=== PATIENT | female | born 1985 | race Caucasian/White ===

== ENCOUNTER 2018-05-15 17:02 | Emergency (ER) | payer OTHER ==
[~2018-05-15] VITALS: Ht 165.1 cm; Wt 68.0 kg
[2018-05-15] MEDS ORDERED: IMITREX50 MG ORAL (17:09)
[2018-05-15] MEDS ORDERED: KLONOPIN0.5 MG ORAL (17:09)
[2018-05-15] MEDS ORDERED: HYDROCHLOROTH12.5 M2 ORAL (17:09)
[2018-05-15] MEDS ORDERED: CONTRAVE (17:09)
[2018-05-15] MEDS ORDERED: Isovue-300 100ml vial INJ PRN (17:30)
--- NOTE | 2018-05-15 17:40 | Emergency Room Report ---
History of Present Illness General Chief Complaint: Abdominal Pain Source: Patient Present Illness HPI Patient is a 32-year-old female who returned last evening from overseas trip to [place]. Today she woke up with upper abdominal pain she describes as crampy nonradiating with no worsening or alleviating factors. She feels it similar to prior episodes of food poisoning but the pain is more intense. Patient denies any prior abdominal surgery but does state she had a recent cervical LEEP procedure. Pain is associated with vomiting and diarrhea with chills but no fever. Allergies: Coded Allergies: No Known Allergies (Unverified , 05/15/18) Patient History Past Medical History: none Past Surgical History: none Pertinent Family History: none Social History: Denies: smoking, alcohol use, drug use Last Menstrual Period: unk Review of Systems Constitutional: Reports: chills; Denies: no symptoms, see HPI, sweats, fever, malaise, weakness, other Eye: Denies: no symptoms, see HPI, eye pain, blurred vision, tearing, double vision, nose pain, nose congestion, acuity changes, discharge, other ENT: Denies: no symptoms, see HPI, ear pain, ear discharge, nose pain, nose congestion, throat pain, throat swelling, mouth pain, hearing loss, nasal discharge, other Respiratory: Denies: no symptoms, see HPI, cough, orthopnea, shortness of breath, stridor, wheezing, FERNÁNDEZ, sputum, other Cardiovascular: Denies: no symptoms, see HPI, chest pain, edema, palpitations, syncope, PND, other Gastrointestinal: Reports: abdominal pain, diarrhea, nausea, vomiting Genitourinary: Denies: no symptoms, see HPI, discharge, dysuria, frequency, hematuria, pain, retention, incontinence, urgency, vag bleed/dc, other Musculoskeletal: Denies: no symptoms, see HPI, back pain, gout, joint pain, joint swelling, muscle pain, muscle stiffness, other Skin: Denies: no symptoms, see HPI, rash, change in color, change in hair/nails , dryness, lesions, other Neurological: Denies: no symptoms, see HPI, headache, numbness, paresthesia, seizure, tingling, tremors, focal weakness, syncope, dizziness, other Endocrine: Denies: no symptoms, see HPI, excessive sweating, flushing, intolerance to temperature, increased thirst, increased urine, unexplained weight loss, other Physical Exam Vital Signs Date Time Temp Pulse Resp B/P (MAP) Pulse Ox O2 Delivery O2 Flow Rate FiO2 05/15/18 17:00 98.1 100 18 128/86 99 Room Air 98.1 Sp02 EP Interpretation: reviewed, normal General Appearance: no apparent distress, alert, GCS 15, non-toxic Head: normocephalic, atraumatic Eyes: bilateral eye normal inspection, bilateral eye PERRL ENT: hearing grossly normal, normal pharynx, no angioedema, normal voice Neck: full range of motion, supple/symm/no masses Respiratory: chest non-tender, lungs clear, normal breath sounds, speaking full sentences Cardiovascular #1: regular rate, rhythm, no edema Cardiovascular #2: 2+ carotid (R), 2+ carotid (L), 2+ radial (R), 2+ radial (L) , 2+ dorsalis pedis (R), 2+ dorsalis pedis (L) Gastrointestinal: soft, non-distended, no guarding, no rebound, abnormal bowel sounds - Diminished bowel sounds, tenderness Rectal: deferred Genitourinary: normal inspection, no CVA tenderness Musculoskeletal: back normal, gait/station normal, normal range of motion, non- tender, calf tenderness Neurologic: alert, oriented x3, responsive, motor strength/tone normal, sensory intact, speech normal Psychiatric: judgement/insight normal, memory normal, mood/affect normal, no suicidal/homicidal ideation Reflexes: 3+ bicep (R), 3+ bicep (L), 3+ tricep (R), 3+ tricep (L), 3+ knee (R) , 3+ knee (L) Skin: normal color, no rash, warm/dry, well hydrated Lymphatic: no adenopathy Medical Decision Making Diagnostic Impression: Primary Impression: Enterocolitis ER Course Patient is a 32-year-old female who is complaining of crampy abdominal pain for the last several hours after returning from an overseas trip. Patient denied any blood in the stool. Workup emergent department shows patient with normal laboratory studies, urinalysis that is dirty but appears to be infected, and on her CT abdomen without other significant abnormalities. Patient's pain is improved with morphine, nausea is improved with Zofran. Patient has received IV fluids here in the emergency department. Patient will be sent home to follow with her primary care physician and to return to the emergency department should her symptoms worsen or new or concerning symptoms arise Laboratory Tests Test 05/15/18 17:30 05/15/18 17:35 05/15/18 17:50 Urine HCG, Qualitative Negative (NEGATIVE) White Blood Count 6.6 K/UL (4.8-10.8) Red Blood Count 4.32 M/UL (4.20-5.40) Hemoglobin 13.9 G/DL (12.0-16.0) Hematocrit 40.2 % (37.0-47.0) Mean Corpuscular Volume 93 FL (80-99) Mean Corpuscular Hemoglobin 32.1 PG (27.0-31.0) H Mean Corpuscular Hemoglobin Concent 34.5 G/DL (32.0-36.0) Red Cell Distribution Width 11.3 % (11.6-14.8) L Platelet Count 192 K/UL (150-450) Mean Platelet Volume 6.7 FL (6.5-10.1) Neutrophils (%) (Auto) 76.1 % (45.0-75.0) H Lymphocytes (%) (Auto) 16.4 % (20.0-45.0) L Monocytes (%) (Auto) 6.5 % (1.0-10.0) Eosinophils (%) (Auto) 0.4 % (0.0-3.0) Basophils (%) (Auto) 0.5 % (0.0-2.0) Sodium Level 136 MMOL/L (136-145) Potassium Level 3.1 MMOL/L (3.5-5.1) L Chloride Level 102 MMOL/L (98-107) Carbon Dioxide Level 27 MMOL/L (21-32) Anion Gap 7 mmol/L (5-15) Blood Urea Nitrogen 13 mg/dL (7-18) Creatinine 1.0 MG/DL (0.55-1.30) Estimate Glomerular Filtration Rate > 60 mL/min (>60) Glucose Level 88 MG/DL (74-106) Calcium Level 8.2 MG/DL (8.5-10.1) L Total Bilirubin 0.4 MG/DL (0.2-1.0) Aspartate Amino Transferase (AST) 37 U/L (15-37) Alanine Aminotransferase (ALT) 61 U/L (12-78) Alkaline Phosphatase 102 U/L (46-116) Total Protein 7.4 G/DL (6.4-8.2) Albumin 3.3 G/DL (3.4-5.0) L Globulin 4.1 g/dL Albumin/Globulin Ratio 0.8 (1.0-2.7) L Lipase 120 U/L (73-393) Urine Color Pale yellow Urine Appearance Cloudy Urine pH 6 (4.5-8.0) Urine Specific [place] 1.015 (1.005-1.035) Urine Protein 1+ (NEGATIVE) H Urine Glucose (UA) Negative (NEGATIVE) Urine Ketones Negative (NEGATIVE) Urine Occult Blood 5+ (NEGATIVE) H Urine Nitrite Negative (NEGATIVE) Urine Bilirubin Negative (NEGATIVE) Urine Urobilinogen Normal MG/DL (0.0-1.0) Urine Leukocyte Esterase 2+ (NEGATIVE) H Urine RBC 30-40 /HPF (0 - 2) H Urine WBC 40-60 /HPF (0 - 2) H Urine Squamous Epithelial Cells Moderate /LPF (NONE/OCC) H Urine Bacteria Few /HPF (NONE) Last Vital Signs Date Time Temp Pulse Resp B/P (MAP) Pulse Ox O2 Delivery O2 Flow Rate FiO2 05/15/18 17:00 98.1 100 18 128/86 99 Room Air 98.1 Disposition: HOME, SELF-CARE Condition: Improved Scripts Ondansetron (Zofran) 4 Mg Tablet 4 MG ORAL Q6H PRN for Nausea & Vomiting, #30 TAB 0 Refills Prov: Manny Beckman MD 05/15/18 Hydrocodone Bit/Acetaminophen 5-325* (NORCO 5-325*) 1 Each Tablet 1 TAB ORAL Q6H PRN for For Pain, #10 TAB 0 Refills Prov: Manny Beckman MD 05/15/18 Cephalexin* (KEFLEX*) 500 Mg Capsule 500 MG ORAL EVERY 6 HOURS for 7 Days, #28 CAP Prov: Manny Beckman MD 05/15/18 Patient Instructions: Colitis, Urinary Tract Infection, [id number] Manny Beckman MD May 15, 2018 17:40
[2018-05-15 17:53] LABS: BASOPHILS % (AUTO) 0.5 % (0.0-2.0); EOSINOPHILS % (AUTO) 0.4 % (0.0-3.0); HEMATOCRIT 40.2 % (37.0-47.0); HEMOGLOBIN 13.9 G/DL (12.0-16.0); LYMPHOCYTES % (AUTO) 16.4 % (20.0-45.0); MEAN CORPUSCULAR VOLUME 93 FL (80-99); MONOCYTES % (AUTO) 6.5 % (1.0-10.0); NEUTROPHILS % (AUTO) 76.1 % (45.0-75.0); PLATELET COUNT 192 K/UL (150-450); RED BLOOD COUNT 4.32 M/UL (4.20-5.40); RED CELL DISTRIBUTION WIDTH 11.3 % (11.6-14.8); WHITE BLOOD COUNT 6.6 K/UL (4.8-10.8)
[2018-05-15 18:05] VITALS: BP 108/74
[2018-05-15 18:05] LABS: ANION GAP 7 mmol/L (5-15); BLOOD UREA NITROGEN 13 mg/dL (7-18); CALCIUM 8.2 MG/DL (8.5-10.1); CARBON DIOXIDE 27 MMOL/L (21-32); CHLORIDE 102 MMOL/L (98-107); POTASSIUM 3.1 MMOL/L (3.5-5.1); SODIUM 136 MMOL/L (136-145)
[2018-05-15 18:10] LABS: ALANINE AMINOTRANSFERASE 61 U/L (12-78); ALBUMIN 3.3 G/DL (3.4-5.0); ALBUMIN/GLOBULIN RATIO 0.8 (1.0-2.7); ALKALINE PHOSPHATASE 102 U/L (46-116); ASPARTATE AMINO TRANSFERASE 37 U/L (15-37); BILIRUBIN,TOTAL 0.4 MG/DL (0.2-1.0)
[2018-05-15] MEDS ORDERED: Morphine Sulfate 4mg/ml Inj IVP ONE ×2 (19:00→19:45)
[2018-05-15 19:24] LABS: APPEARANCE,URINE CLOUDY; BILIRUBIN, URINE NEGATIVE (NEGATIVE); COLOR,URINE PALE YELLOW; GLUCOSE, URINE (UA) NEGATIVE (NEGATIVE); KETONES,URINE NEGATIVE (NEGATIVE); LEUKOCYTE ESTERASE ,URINE 2+ (NEGATIVE); NITRITE,URINE NEGATIVE (NEGATIVE); PH,URINE 6 (4.5-8.0); PROTEIN,URINE 1+ (NEGATIVE); UROBILINOGEN,URINE NORMAL MG/DL (0.0-1.0)
[2018-05-15] MEDS ORDERED: NORCO 5-325 TA1 EACH ORAL (19:52)
[2018-05-15] MEDS ORDERED: CEPHALEXIN500 MG ORAL (19:52)
[2018-05-15] MEDS ORDERED: ZOFRAN4 MG ORAL (19:52)
[2018-05-15 20:28] VITALS: BP 101/69
[2018-05-15 20:31] VITALS: BP 101/69
--- NOTE | 2018-05-16 09:09 | Diagnostic Imaging Report ---
Clinical Indication: Right lower quadrant pain, nausea, vomiting, diarrhea Technique: No oral contrast utilized, per emergency room physician request IV administration nonionic contrast. Venous phase spiral acquisition obtained through the abdomen and pelvis. Multiplanar reconstructions were generated. Total dose length product 747.68 mGycm. CTDIvol(s) 13.68 mGy. Dose reduction achieved using automated exposure control Comparison: none Findings: The appendix is not visualized, and surgical clips and ovi adjacent to the cecum indicating likely prior appendectomy. Distal ileal loops are fluid-filled, and the rosales are somewhat thickened and enhancing. The colon is mildly fluid-filled although the rosales not frankly thickened There is a small amount of free pelvic fluid. No free intraperitoneal air is evident. Distal esophagus, stomach, duodenum are unremarkable. There is what appears to be mild bilateral hydronephrosis. No definite hydroureter or ureteral calculi. No definite intrarenal calculi demonstrated. No focal renal abnormality The liver, bile bladder, bile ducts, pancreas, spleen, adrenals are unremarkable. No retroperitoneal or mesenteric mass or adenopathy. No pelvic mass or adenopathy. The included lung bases are clear. The bones are unremarkable. Impression: Thick-walled fluid-filled small bowel, consistent with enteritis, nonspecific as regards etiology. Fluid within the colon may also indicate a component of colitis Bilateral right greater than left mild hydronephrosis, without definite obstructive lesion. Possibly on the basis of congenital ureteropelvic junction obstruction. Multiple bilateral parapelvic cysts can also have this appearance although this is deemed less likely Evidence of prior appendectomy Trace free pelvic fluid, likely physiologic This agrees with the preliminary interpretation provided overnight by [facility] teleradiology service. The CT scanner at [facility] is accredited by the [employer] and the scans are performed using protocols designed to limit radiation exposure to as low as reasonably achievable to attain images of sufficient resolution adequate for diagnostic evaluation.
[2018-05-19] MEDS ORDERED: LEVAQUIN500 MG ORAL (09:08)
== END 2018-05-15 20:30 | disposition home or self-care (01) ==
LOC: EDBD 17:02 → EMR 17:30
DX: K52.9 Noninfective gastroenteritis and colitis, unspecified (principal); Z90.89 Acquired absence of other organs
CPT/HCPCS: 36415; 74177; 80053; 81003; 81025; 83690; 85025; 87086; 87181; 96361; 96374; 96375; 96376; 99284; J2270; J2405; Q9967